=== PATIENT | female | born 1970 | race Caucasian/White ===

== ENCOUNTER 2016-12-30 15:02 | Emergency (ER) | payer OTHER ==
--- NOTE | ~2016-12-30 | US67 ---
[facility] A Service of [facility] & [facility] RADIOLOGY TEXT RESULTS PATIENT: BRITTANY APONTE LOCATION: [facility] : 70 UNIT #: [id number] AGE: [address]: Umer Goodwin MD SEX: F ORDER DR: [id number] [facility] [address] [place], [place] [address] [id number] E MR#: [id number] Acc #: [id number] NAME: BRITTANY APONTE : 1970 SEX: F STUDY DATE/TIME: 12/30/2016 16:19 UNIT: [facility] ROOM: STUDY DESCRIPTION: US Gallbladder Attending Physician: Umer Goodwin M.D. Ordering Physician: Ed Doctor [id number] [facility] Primary Care Physician: Mayra Kapoor A.P.R.N. MEDICAL IMAGING REPORT This report is preliminary unless electronic signature is present EXAM Gallbladder ultrasound, 12/30/2016 HISTORY Right upper quadrant abdominal pain with nausea and vomiting for 3 months. FINDINGS The liver demonstrates an increase in echotexture with attenuation of the ultrasound beam characteristic of mild fatty infiltration. No cystic or solid mass lesions were seen in the liver. The intra and extrahepatic bile ducts are not dilated. The gallbladder contains multiple shadowing gallstones but there is no evidence of gallbladder wall thickening or pericholecystic fluid. The common duct measures 3.0 mm. The pancreas and right kidney are normal. IMPRESSION 1. Fatty infiltration of the liver. 2. Cholelithiasis. No evidence of gallbladder wall thickening or pericholecystic fluid. No intra or extrahepatic biliary ductal dilatation. Dictated by... Ben Dubose M.D. THIS IS AN ELECTRONICALLY VERIFIED REPORT Ben Dubose M.D. at 12/31/2016 7:47 AM Brenda TD: 12/30/2016 19:10 JOB #: [id number] MEDICAL IMAGING REPORT Page 1 of 1 COPY
--- NOTE | ~2016-12-30 | EKG ---
PATIENT: BRITTANY APONTE UNIT #: [id number] Ventricular Rate: 71 BPM Atrial Rate: 71 BPM P-R Interval: 122 ms QRS Duration: 88 ms Q-T Interval: 378 ms QTC Calculation(Bezet): 410 ms P Batson: 45 degrees Calculated R Batson: 73 degrees Calculated T Batson: 45 degrees Diagnosis Line: Normal sinus rhythm Diagnosis Line: Normal ECG Diagnosis Line: When compared with ECG of 21-OCT-2014 09:55, Diagnosis Line: QT has shortened Diagnosis Line: Confirmed by IVONNE DAVIDSON MD ([id number]) on 12/31/2016 Diagnosis Line: 11:17:14 PM INTERPRETING MD: STUART GARCIAS
[~2016-12-30 15:02] MED LIST: ADVAIR 250-501 EACH IH; ADVAIR INH; AMLODIPINE BES2.5 MG PO; AMLODIPINE BESY10 MG PO; AUGMENTIN PO; B12; BACTRIM DS TABL1 TAB PO; CIPRO PO; CLEOCIN HCL300 M1 PO; COMPAZINE10 M1 PO; CYMBALTA PO; CYMBALTA30 MG PO; DEPAKOTE (UD)250 M1 PO; DETROL LA PO; DETROL LA2 MG PO; DIAZEPAM PO; DIOVAN HCT 160/1 TAB PO; DIOVAN PO; DIOVAN160 MG PO; DITROPAN PO; FIORINAL 50-321 EACH PO; FLEXERIL10 MG PO; HORMONE; HYDROCHLOROTH12.5 M1 PO; K-DUR10 MEQ PO; KEFLEX PO; KLONOPIN; KLONOPIN PO; KLONOPIN1 MG PO; KLONOPIN2 MG PO; LISINOPRIL20 MG PO; LOPRESSOR PO; LORTAB 10/500 T1 TAB; LORTAB 10/500 T1 TAB PO; LORTAB 7.5-5001 TAB PO; LYRICA PO; MACROBID100 M1 PO; MEDROL4 MG/DOSE- PO; MOBIC PO; MORPHINE PATCH; MS CONTIN PO; NICOTINE T1 PATCH .2 TOP; NORCO 5/325 TAB1 TAB PO; NORCO 7.5-3251 EACH PO; OXYCONTIN PO; OXYCONTIN40 MG PO; OXYCONTIN60 MG PO; PERCOCET 5-3251 TAB; PERCOCET5/325 PO; PHENERGAN PO; PHENERGAN25 MG PO; PREMARIN PO; PREMARIN0.625 MG PO; PREVACID; PRILOSEC PO; PRILOSEC20 MG PO; SEROQUEL PO; SEROQUEL XR200 MG PO; SEROQUEL300 M1 PO; SEROQUEL50 M1 PO; SOMA; SOMA PO; SPIRIVA18 MCG INH; SYMBICORT IH; TORADOL10 MG PO; TYLOX 5/500 CAP1 CAP PO; TYLOX1 CAP 5/50 PO; VENLAFAXINE HC150 M1 PO; VICODIN 5/1 TAB 5/50 PO; VICODIN 5/500 T1 TAB PO; VIT B 12 IM; VITAMIN B122500 MC1 PO; ZANAFLEX2 M1 PO; [UNRECOGNIZED DRUG - REMARK]
[2016-12-30 15:08] LABS: URINE SOURCE CLEAN CATCH
[2016-12-30 15:19] LABS: BASOPHIL% 0.6 % (0-2.5); EOSINOPHIL# 0.2 X10e3 (0-0.7); EOSINOPHIL% 2.6 % (0.0-7.0); HEMATOCRIT 42.3 % (35.0-45.0); LYMPHOCYTE# 1.2 X10e3 (1.0-3.5); MEAN CELL VOLUME 91.9 FL (83-96); MEAN CORPUSCULAR HEMOGLOBIN 30.5 PG (28-34); MEAN CORPUSCULAR HGB CONC 33.2 g/dL (30-36); MEAN PLATELET VOLUME 7.9 FL (6.5-11.5); MONOCYTE# 0.4 X10e3 (0-1.0); MONOCYTE% 5.7 % (3.0-12.0); NEUTROPHIL# 5.6 X10e3 (1.5-7.1); NEUTROPHIL% 75.1 % (40-75); PLATELET COUNT 264 X10e3 (140-420); RED CELL DISTRIBUTION WIDTH 13.3 % (11.0-15.5); WHITE BLOOD COUNT 7.5 X10e3 (4.0-10.5)
[2016-12-30 15:19] LABS: URINE APPEARANCE CLEAR; URINE BILIRUBIN NEG (NEG); URINE BLOOD NEG (NEG); URINE COLOR DK YELLOW; URINE GLUCOSE NEG (NEG); URINE KETONE NEG (NEG); URINE LEUKOCYTE ESTERASE TRACE (NEG); URINE NITRATE NEG (NEG); URINE PROTEIN NEG (NEG); URINE SPECIFIC GRAVITY 1.007 (1.003-1.035); URINE UROBILINOGEN 0.2 MG/DL (NEG)
[2016-12-30 15:22] LABS: CULTURE INDICATED? YES; URBCS1 AUWI 0-2 /[HPF] (0-2); URINE BACTERIA AUWI 1+ (NEGATIVE); URINE SQUAMOUS EPITHELIAL CELL OCC /[HPF]
[2016-12-30 15:27] LABS: DIFF IND NO
[2016-12-30 15:41] LABS: ALBUMIN SERUM 3.6 g/dL (3.5-5.0); BILIRUBIN, DIRECT 1.2 mg/dL (0.0-0.2); BILIRUBIN,INDIRECT 0.9 mg/dL (0.0-0.9); BILIRUBIN,TOTAL 2.1 mg/dL (0.2-2.0); BUN/CREATININE RATIO 18.33; CALCIUM SERUM 8.7 mg/dL (8.4-10.2); CREATININE SERUM 0.6 mg/dL (0.6-1.4); GLOM FILT RATE Estimated 109.3 mL/min (>60); POTASSIUM 3.8 mmol/L (3.5-5.1); PROTEIN TOTAL SERUM 6.6 g/dL (6.0-8.3)
== END 2016-12-30 16:35 | disposition home or self-care (01) ==
LOC: CED 15:02
PROVIDERS: Emergency Medicine
DX: K80.20 Calculus of gallbladder without cholecystitis without obstruction (principal); J45.909 Unspecified asthma, uncomplicated; I10 Essential (primary) hypertension; Z98.51 Tubal ligation status; F17.210 Nicotine dependence, cigarettes, uncomplicated; Z88.2 Allergy status to sulfonamides; Z88.1 Allergy status to other antibiotic agents; Z88.8 Allergy status to other drugs, medicaments and biological substances; Z79.899 Other long term (current) drug therapy
CPT/HCPCS: 36415; 76705; 80048; 80076; 81003; 83690; 85025; 87086; 93005; 96374; 96375; 99284

== ENCOUNTER → 2017-01-07 | Outpatient (CLI) | payer OTHER ==
[2017-01-07 17:53] LABS: BILIRUBIN,TOTAL 0.6 mg/dL (0.2-2.0); CALCIUM SERUM 9.8 mg/dL (8.4-10.2); CREATININE SERUM 1.5 mg/dL (0.6-1.4); GLOM FILT RATE Estimated 41.4 mL/min (>60); POTASSIUM 4.6 mmol/L (3.5-5.1); PROTEIN TOTAL SERUM 7.1 g/dL (6.0-8.3)
== END | disposition home or self-care (01) ==
LOC: CLAB 16:37
PROVIDERS: Nurse Practitioner Family
DX: Z51.81 Encounter for therapeutic drug level monitoring (principal); R53.83 Other fatigue; Z79.899 Other long term (current) drug therapy
CPT/HCPCS: 36415; 80053; 80164; 82607